=== PATIENT | female | born 1965 | race Caucasian/White ===

== ENCOUNTER 2018-12-30 20:45 | Emergency (ER) | payer BC ==
[~2018-12-30] VITALS: Ht 162.6 cm; Wt 106.8 kg
[2018-12-30 21:15] LABS: BASOPHILS # (AUTO) 0.1 X10'3 (0-0.2); BASOPHILS % (AUTO) 0.8 % (0-1); EOSINOPHILS # (AUTO) 0.1 X10'3 (0-0.9); EOSINOPHILS % (AUTO) 1.1 % (0-6); HEMATOCRIT 48.9 % (35.0-45.0); HEMOGLOBIN 16.4 g/dl (12.0-16.0); LYMPHOCYTES # (AUTO) 2.7 X10'3 (1.1-4.8); LYMPHOCYTES % (AUTO) 24.5 % (21-51); MEAN CORPUSCULAR HEMOGLOBIN 29.2 PG (27.0-31.0); MEAN CORPUSCULAR HGB CONC 33.5 g/dL (33.0-36.5); MEAN CORPUSCULAR VOLUME 87.2 FL (78-98); MEAN PLATELET VOLUME 9.3 FL (7.4-10.4); MONOCYTES # (AUTO) 0.7 X10'3 (0-0.9); MONOCYTES % (AUTO) 6.7 % (2-12); NEUTROPHILS # (AUTO) 7.3 X10'3 (1.8-7.7); NEUTROPHILS % (AUTO) 66.9 % (42-75); PLATELET COUNT 216 X10'3 (140-440); RED BLOOD COUNT 5.61 X10'6 (4.20-5.60); RED CELL DISTRIBUTION WIDTH 14.1 % (11.5-14.5); WHITE BLOOD COUNT 10.9 X10'3 (4.5-11.0)
[2018-12-30 21:28] LABS: PARTIAL THROMBOPLASTIN TIME 30 SECONDS (22-32)
[2018-12-30 21:33] LABS: ALANINE AMINOTRANSFERASE 31 U/L (12-78); ALBUMIN 3.8 G/DL (3.4-5.0); ALBUMIN/GLOBULIN RATIO 1.2 (1.1-1.5); ALKALINE PHOSPHATASE 56 IU/L (46-116); ANION GAP 9 (8-16); ASPARTATE AMINO TRANSFERASE 15 U/L (10-37); BILIRUBIN,TOTAL 0.3 MG/DL (0.1-1.0); BLOOD UREA NITROGEN 13 MG/DL (7-18); CALCIUM 8.7 MG/DL (8.5-10.1); CHLORIDE 107 MMOL/L (99-107); CREATININE 0.93 MG/DL (0.40-0.90); GLUCOSE 116 MG/DL (70-104); POTASSIUM 4.1 MMOL/L (3.5-5.1); SODIUM 143 MMOL/L (135-145); TOTAL CARBON DIOXIDE 26.7 MMOL/L (24-32); TOTAL PROTEIN 7.1 G/DL (6.4-8.2); eGFR 63 ML/MIN
[2018-12-30] MEDS ORDERED: normal saline 1000ML IV soln IVB ONE (21:40)
[2018-12-30] MEDS ORDERED: famotidine 10mg tablet PO SCH (21:40)
[2018-12-30] MEDS ORDERED: ondansetron/PF 4mg/2ml inj IV ONE (21:40)
[2018-12-30] MEDS ORDERED: famotidine 20mg tablet PO SCH (21:43)
[2018-12-30 22:05] LABS: LIPASE 144 U/L (73-393)
[2018-12-30] MEDS ORDERED: RANI150C4 PO (22:35)
--- NOTE | 2018-12-30 22:36 | NUR ---
RELIEVING RN FOR BREAK, PT IS RESTING QUIETLY ON GURNEY, RESP EVEN AND UNLABORED, FAMILY AT BEDSIDE
[2018-12-30 22:37] VITALS: BP 123/86
== END 2018-12-30 22:44 | disposition home or self-care (01) ==
LOC: ER 20:46
DX: R10.13 Epigastric pain (principal); R07.89 Other chest pain; R11.10 Vomiting, unspecified; F17.200 Nicotine dependence, unspecified, uncomplicated; F12.90 Cannabis use, unspecified, uncomplicated
CPT/HCPCS: 36415; 71045; 80053; 83690; 84484; 85025; 85610; 85730; 93005; 96361; 96374; 99284; J2405; J7030